=== PATIENT | female | born 1995 | race Caucasian/White ===

== ENCOUNTER 2018-07-24 23:21 | Emergency (ER) | payer OTHER ==
[~2018-07-24] VITALS: Ht 170.2 cm; Wt 61.4 kg
[2018-07-24 23:26] VITALS: BP 111/75
[2018-07-25] MEDS ORDERED: ACETAMINOPHEN 500 MG TABLET PO ONE
[2018-07-25] MEDS ORDERED: OXYMETAZOLINE NASAL SPRAY 0.05%, 15ML ONE (01:08)
[2018-07-25] MEDS ORDERED: ACETAMINOPHEN 500 MG TABLET ONE (01:08)
[2018-07-25] MEDS ORDERED: OXYMETAZOLINE NASAL SPRAY 0.05%, 15ML NAS ONE (01:30)
[2018-07-25] MEDS ORDERED: BACITRACIN ZINC OINT 500U/GM, 0.9 GM ONE (01:57)
== END 2018-07-25 02:23 | disposition home or self-care (01) ==
LOC: ED 07-25 02:15
DX: S02.2XXA Fracture of nasal bones, initial encounter for closed fracture (principal); Y04.2XXA Assault by strike against or bumped into by another person, initial encounter; Y93.89 Activity, other specified; Y92.89 Other specified places as the place of occurrence of the external cause; Y99.8 Other external cause status
CPT/HCPCS: 93005; 99283